=== PATIENT | female | born 1935 | race Caucasian/White ===

== ENCOUNTER 2017-04-21 09:06 | Inpatient (IN) | payer MEDICARE ==
--- NOTE | ~2017-04-21 | HP ---
History And Physical [id number] [facility] [place]. [address] NAME: ALBERT VALLADARES : 34 STATUS : ADM IN [facility]#: [id number] AGE: 81 ADM/REG DATE : 04/21/17 MR#: [id number] REPORT SERV DATE: 04/21/17 DICTATED BY: FAUSTO MINER DATE: 04/21/17 REPORT STATUS : Draft TRANSCRIBED BY: MODL DATE: 04/21/17 DATE OF ADMISSION: 04/21/2017 HISTORY OF PRESENT ILLNESS: The patient is an 81-year-old female who fell at home at 2:00 a.m. and fractured her left hip femoral neck. She is complaining of pain in her left hip. She denies any chest pain or shortness of breath. She is nauseous after she was given morphine for pain control in the emergency room. The patient is going to have surgery tomorrow per orthopedist, Dr. Escobar, who is already at bedside discussing surgery with the patient. I was asked to admit this patient for medical management. The patient denies any chest pain or shortness of breath. No fever. No rash. No headache. She is just complaining of pain in her hip. PAST MEDICAL HISTORY: Known for history of mantle cell lymphoma, on immunotherapy; history of recurrent pleural effusion in the past; history of pneumonia in the past; history of cardiomegaly with CHF chronic diastolic dysfunction; anemia of chronic disease; leukocytosis, chronic. Her echocardiogram on 11/07/2016 showed left ventricular systolic function being normal at 60% and it showed mild diastolic dysfunction. For her lymphoma, she is undergoing immunotherapy per Dr. Masterson. She denies any history of heart attacks. No strokes. No diabetes. She has history of mild hypertension. PAST SURGICAL HISTORY: Includes left side port insertion, hysterectomy, and hernia repair. SOCIAL HISTORY: No smoking currently, smoked 30 years ago. No excessive alcohol. No recreational drug use. She has a daughter and granddaughter. FAMILY HISTORY: Mother had ovarian cancer, at 58. Father with heart disease and in his 60s. ALLERGIES: SHE HAS MULTIPLE ALLERGIES WHICH INCLUDE NEOMYCIN, BACITRACIN, POLYMYXIN B, ATORVASTATIN, SULFA, CODEINE, PENICILLIN, NEOSPORIN, BEE STINGS, AND LATEX. HOME MEDICATIONS: Include Fosamax 70 mg p.o. every seven days, Norvasc 5 mg a day, Artificial Tears daily, aspirin 325 mg a day, Pulmicort two puffs inhaled daily p.r.n., Flovent one puff inhaled daily, ibrutinib 140 mg a day, multivitamins daily, omeprazole 20 daily, and Ambien 5 mg at bedtime. REVIEW OF SYSTEMS: 14-point review of systems done and negative except what is stated in the history of present illness. PHYSICAL EXAMINATION: GENERAL: Well-nourished, well-developed female, not in acute distress, resting quietly. VITAL SIGNS: Blood pressure 156/58, temperature 98.5, heart rate 91, respiratory rate 17, and oxygen saturation 94% on room air. HEENT: Head atraumatic, normocephalic. Conjunctivae clear. Pupils are equal and reactive to light and accommodation. Extraocular muscles are intact. History And Physical [address] [address] NAME: ALBERT VALLADARES : 34 STATUS : ADM IN [facility]#: [id number] AGE: 81 ADM/REG DATE : 04/21/17 MR#: [id number] REPORT SERV DATE: 04/21/17 DICTATED BY: FAUSTO MINER DATE: 04/21/17 REPORT STATUS : Draft TRANSCRIBED BY: TALA DATE: 04/21/17 NECK: Supple. Trachea is midline. No supraclavicular or cervical lymphadenopathy. LUNGS: Diminished breath sounds bilaterally. Decreased respiratory effort. CARDIOVASCULAR SYSTEM: Regular rate and rhythm. Point of maximal impulse not displaced. ABDOMEN: Soft, nontender, nondistended. Positive normoactive bowel sounds. EXTREMITIES: No clubbing, cyanosis, or edema. SKIN: Normal color and turgor. PSYCHIATRIC: Normal mood and affect. NEUROLOGIC: Awake, alert, and oriented in time, place, and person. She is hard of hearing. Muscle strength is 5/5 bilaterally in the upper and lower extremities. SKIN: Normal color and turgor. LABORATORY RESULTS: Sodium 134, potassium 4.2, chloride 102, carbon dioxide 23, BUN 14, creatinine 0.86. Blood sugar 83. ALT 22, AST 40. White count 12,000, hemoglobin 12, hematocrit 34.5, and platelet count is 155. PT 14, INR 1.1. Chest x-ray showed no acute cardiopulmonary process, stable left Port-A-Cath with tip over the SVC, stable dense calcified plaque at the aortic arch. X-ray of the left hip showed left femoral neck fracture. EKG: EKG showed normal sinus rhythm with a rate of 79. ASSESSMENT AND PLAN: This is very pleasant 81-year-old female with a past medical history of mantle cell lymphoma, history of hypertension, history of congestive heart failure, chronic diastolic dysfunction, history of recurrent pneumonias in the past, presented with left hip fracture secondary to fall. 1. Nausea secondary to pain medicine secondary to left hip fracture. 2. Pain secondary to left hip fracture. 3. Hypertension secondary to pain. We will admit the patient to telemetry bed. Dr. Escobar, orthopedist, already saw the patient and he wrote his orders. We will take care of her medical problems. Right now, she looks stable. We will give her reasonable control with morphine. If she develops nausea, we will give her intravenous Zofran. Blood pressure is mildly elevated because of pain. We will give her intravenous hydralazine as needed for systolic blood pressure of 160 and above. We will monitor this patient. We will give her also breathing treatment and continue her Pulmicort and Flovent. MG/MODL Fausto Miner M.D. / [id number] History And Physical [address] [address] NAME: ALBERT VALLADARES : 34 STATUS : ADM IN PAT#: [id number] AGE: 81 ADM/REG DATE : 04/21/17 MR#: [id number] REPORT SERV DATE: 04/21/17 DICTATED BY: FAUSTO MINER DATE: 04/21/17 REPORT STATUS : Draft TRANSCRIBED BY: MODL DATE: 04/21/17 CC: DO Shaun Brooks M.D. Neil Spitalny, M.D.
--- NOTE | ~2017-04-21 | DS ---
Discharge Summary [facility] [address] [facility] [place]. [address] NAME: ALBERT VALLADARES : 33 STATUS : DIS IN PAT#: [id number] AGE: 81 ADM/REG DATE : 04/21/17 MR#: [id number] REPORT SERV DATE: 04/25/17 DICTATED BY: RICKEY FLORES DATE: 04/24/17 REPORT STATUS : Draft TRANSCRIBED BY: TALA DATE: 04/24/17 ADMISSION DATE: 04/21/2017 DISCHARGE DATE: 04/24/2017 CONSULTATION: Orthopedic Surgeon, Dr. Harsh Escobar. INVASIVE PROCEDURE: Cemented bipolar prosthesis to the left hip. DISCHARGE DIAGNOSES: 1. Displaced subcapital fracture, left hip. 2. Hypertension. 3. Acute kidney injury, resolved. 4. Hyponatremia, resolved. 5. Postop anemia. 6. History of mantle cell lymphoma. 7. Right upper extremity hematoma. DISCHARGE CONDITION: Stable. IMAGIN. Hip x-ray, two views of the pelvis, impression: Garden IV left femoral neck fracture. 2. X-ray of the left hip postop, impression: Status post cemented left hip bipolar prosthetic placement. HISTORY OF PRESENT ILLNESS: For detailed HPI, please make reference to Dr. Kam's dictation on 04/21/2017. In brief, this is an 81-year-old female, who presented to the emergency room with complaints of severe left hip pain after a ground-level fall at home. X ray of the pelvis in the ER showed left hip fracture. The patient was admitted to the Hospitalist Service for further management. HOSPITAL COURSE: 1. Left hip fracture. Orthopedic surgeon was consulted, who recommended total hip replacement. The patient underwent placement of cemented bipolar prosthesis of the left hip successfully without any significant complications. Postop, the patient did not have any significant complications. Given history of prior GI bleeds and history of malignancy, it was noted per Orthopedics that patient should go home on aspirin 325 mg p.o. b.i.d. for DVT prophylaxis. Physical Therapy evaluated the patient and recommended acute rehab. lineworker was able to secure an acute rehab placement. The patient was discharged to rehab in stable condition. 2. Anemia secondary to acute on chronic anemia. The patient has a known baseline history of anemia. Follows up with Hematology. Last known baseline was 9.9 in November 2014. At the time of presentation, patient's hemoglobin was 12. During the course of this admission, the patient's hemoglobin trended down to 7.3, likely related to acute blood loss. Postop, the patient received 1 unit of blood transfusion. The patient's hemoglobin improved to 8.3 at the time of discharge and remained stable. The patient was advised to continue follow up with Hematology as an outpatient. Discharge Summary [address] [address] NAME: ALBERT VALLADARES : 34 STATUS : DIS IN PAT#: [id number] AGE: 81 ADM/REG DATE : 04/21/17 MR#: [id number] REPORT SERV DATE: 04/25/17 DICTATED BY: RICKEY FLORES DATE: 04/24/17 REPORT STATUS : Draft TRANSCRIBED BY: TALA DATE: 04/24/17 3. Acute kidney injury. The patient's creatinine trended up to 1.5 during the course of this admission, likely related to hypotension. The patient received IV fluid bolus. The patient's creatinine trended down from 1.5 to 1.1 prior to discharge. The patient was advised to continue follow up with primary care physician. DISCHARGE MEDICATIONS: 1. Aspirin 325 mg p.o. b.i.d., per Orthopedics recommendations (for DVT prophylaxis postop). 2. Vitamin one p.o. b.i.d. 3. Protonix 40 mg p.o. daily. 4. Prilosec 20 mg p.o. daily. 5. Norvasc 5 mg p.o. daily. 6. Fosamax 70 mg p.o. monthly. 7. Ibrutinib 140 mg p.o. at bedtime. DISCHARGE CONDITION: Stable. DISCHARGE DISPOSITION: Acute rehab. DISCHARGE ACTIVITIES: As tolerated. DISCHARGE FOLLOWUP: 1. Follow up with Oncology/Hematology for followup on anemia and history of mantle cell lymphoma. 2. Follow up with orthopedic surgeon as an outpatient. 3. Follow up with primary care physician within one to two weeks of discharge. Greater than 30 minutes was used to prepare this patient's discharge, reconcile medication, advise the patient on discharge plans and followup. DICTATED BY: MD ELPIDIO StaufferO/TALA Rickey Flores MD / [id number] CC: MD Brad Stauffer DO
--- NOTE | ~2017-04-21 | OP ---
Record Of Operation [facility] [address] [place]. [address] NAME: ALBERT VALLADARES : 33 STATUS : ADM IN PAT#: [id number] AGE: 81 ADM/REG DATE : 04/21/17 MR#: [id number] REPORT SERV DATE: 04/22/17 DICTATED BY: ALEK BURRIS DATE: 04/22/17 REPORT STATUS : Draft TRANSCRIBED BY: MODJordyn DATE: 04/22/17 DATE OF PROCEDURE: 04/22/2017 PREOPERATIVE DIAGNOSIS: Displaced subcapital fracture, left hip. POSTOPERATIVE DIAGNOSIS: Displaced subcapital fracture, left hip. OPERATIVE PROCEDURE: Cemented bipolar prosthesis, left hip. DESCRIPTION OF PROCEDURE: The patient was brought to the operating room, and after successful induction of general endotracheal anesthesia, administration of 2 g Ancef preoperatively. The patient was placed in a lateral position, supported by the hip sharma. The hip, thigh, groin, leg, and buttock were scrubbed, prepped, and draped in usual sterile fashion. A short posterolateral incision beginning at the superior aspect of the greater trochanter was carried down through the skin, subcutaneous tissue down the fascia marsha, which was cleaned off with a periosteal elevator and divided in the direction of skin incision. A Charnley retractor was placed deep in the wound after the gluteus was retracted. The piriformis tendon was cleaned off and tagged with a #1 Vicryl suture. The rotators and capsule were divided by electrocautery down to the fractured femoral neck. The rotators once were then swept posterior off the capsule and a T-incision made in the capsule for later repair as well. The femoral neck was shortened several millimeters with an oscillating saw and the fractured femoral head was removed using a power corkscrew and a ligamentum teres cutter. It was sized to 44 mm. Extraneous soft tissue and bone fragments were removed from the acetabulum and 43 and 44 trials were utilized, 44 giving excellent suction fit. At this point, femoral canal was prepared by initial reaming and then increased reaming to 13-14 mm, lateralizing with both the reamers and broaches 0, 1, 2, and partially use of a size 3 broach was carried out in 25 to 30 degrees of anteversion. The canal was copiously irrigated with a canal brush and irrigating solution. A cement restrictor was placed 2 cm to 3 cm distal tip of the prosthesis. Two packs of cement were vacuum mixed and inserted with a cement gun and pressurized with an osteotome. The size 2 [place] Franny straight stem was placed in 25 degrees of anteversion. The extraneous cement was removed. Trial reduction was done with a -4 and with a +0 neck. +0 was selected. After the trunnion was meticulously dried, the +0 L fit femoral head was impacted and the 44 mm bipolar head snapped into place. Components were reduced. Excellent and stable full range of motion was obtained. The wound was further irrigated with pulse lavage. The capsules closed with multiple figure of-eight #1 Vicryl sutures. The rotators were loosely reattached to the greater trochanter Record Of Operation [facility] [address] [facility] [place]. [address] NAME: ALBERT VALLADARES : 34 STATUS : ADM IN PAT#: [id number] AGE: 81 ADM/REG DATE : 04/21/17 MR#: [id number] REPORT SERV DATE: 04/22/17 DICTATED BY: ALEK BURRIS DATE: 04/22/17 REPORT STATUS : Draft TRANSCRIBED BY: MODL DATE: 04/22/17 also with #1 Vicryl sutures. Fascia marsha was closed with both running interrupted #1 Vicryl, subcutaneous tissue with 2-0, and skin with skin bharti. The patient was stable intraoperatively. ESTIMATED BLOOD LOSS: Approximately 150 mL and received 500 mL of crystalloid. NS/MODL Alek Burris M.D. / [id number] CC: Senait Davis DO
[~2017-04-21 09:06] MED LIST: ACET500CAP PO; ALEVE220 MG PO; AMB5 PO; AT25 PO; DELTADOSE; FLONASE NAS; FLORASTOR250 MG PO; HYDROCODONE 5/325 PO; HYOMAX-FT0.125 MG PO; KLOR-CON M2020 MEQ PO; L20 PO; LEVAQUIN750 MG PO; LIQUID TEARS OPH; MEGACEUDL PO; NORV5 PO; NYS500UDL PO; OMNICEF300 PO; PROAIR HFA INH; PROCRIT; PROVHFA INH; PT DENIES ANY MEDS; PULMICORT180 MCG INH; REMERON30 MG PO; ROBITUSS23 OR; TESS PO; ZITH250 PO
[2017-04-21] MEDS ORDERED: AMB5 PO (11:05)
[2017-04-21] MEDS ORDERED: NORV5 PO (11:07)
[2017-04-21] MEDS ORDERED: FLOVENT DISK100 MCG INH (11:07)
[2017-04-21] MEDS ORDERED: PULMICORT180 MCG INH (11:08)
[2017-04-21] MEDS ORDERED: FOSAMAX70 MG PO (11:09)
[2017-04-21] MEDS ORDERED: MULTIVIT/MIN PO (11:10)
[2017-04-21] MEDS ORDERED: REFRESH OPH (11:11)
[2017-04-21] MEDS ORDERED: PRILOSEC OTC20 MG PO (11:11)
[2017-04-21] MEDS ORDERED: ASA5GR PO (11:11)
[2017-04-21] MEDS ORDERED: IMBRU140C PO (11:12)
[2017-04-21 11:29] LABS: BASOPHILS 0.2 %; BASOPHILS ABSOLUTE 0.03 10/3/uL (0.0-0.16); EOSINOPHILS 0.1 %; EOSINOPHILS ABSOLUTE 0.01 10/3/uL (0.0-0.53); IMMATURE GRANULOCYTES 0.4 %; IMMATURE GRANULOCYTES ABSOLUTE 0.05 10/3/uL (0.0-0.11); LYMPHOCYTES 7.8 %; LYMPHOCYTES ABSOLUTE 0.94 10/3/uL (0.67-4.30); MEAN CORPUS HGB CONC 34.8 g/dL (32.0-36.0); MEAN CORPUSCULAR HEMOGLOB 37.4 pg (26.0-34.0); MEAN PLATELET VOLUME 10.7 fL (9.2-13.0); MONOCYTES 9.2 %; MONOCYTES ABSOLUTE 1.11 10/3/uL (0.21-1.20); NEUTROPHILS 82.3 %; PLATELET COUNT 155 10/3/uL (150-400); RBC DISTRIBUTION WIDTH 13.8 % (12.0-16.0); RED CELL COUNT 3.21 10/6/uL (4.0-5.6)
[2017-04-21 11:32] LABS: ER CBC TAT 0 Hrs 11 Mins; HEMATOCRIT 34.5 % (36.0-48.0); MANUAL DIFF NO %; MEAN CORPUSCULAR VOLUME 107.5 fL (80-100)
[2017-04-21 11:41] LABS: BUN (BLOOD UREA NITROGEN) 14 MG/DL (6-23); CALCIUM, SERUM 8.4 MG/DL (8.5-10.4); CHLORIDE, SERUM 102 MMOL/L (96-112); CO2 (CARBON DIOXIDE) 23 MMOL/L (24-34); CREATININE 0.86 MG/DL (0.55-1.02); GFR AFRICAN AMERICAN 73 ML/MIN (>=60); GFR NON AFRICAN AMERICAN 63 ML/MIN (>=60); GLUCOSE, SERUM 83 MG/DL (60-99); POTASSIUM, SERUM 4.2 MMOL/L (3.5-5.3); SGOT(AST) 40 U/L (5-40); SGPT(ALT) 22 U/L (5-65); SODIUM, SERUM 134 MMOL/L (135-148); TOTAL PROTEIN 6.7 G/DL (6.0-8.5)
[2017-04-21 11:42] LABS: A/G RATIO 1.3 (0.7-1.9); ALBUMIN 3.8 G/DL (3.5-5.0); ALKALINE PHOSPHATASE 55 U/L (45-117); GLOBULIN 2.9 G/DL (2.5-4.1); TOTAL BILIRUBIN 1.4 MG/DL (0-1.2)
[2017-04-21 11:43] LABS: INTERNATIONAL NORMAL RATI 1.1 UNITS (-); PARTIAL THROMBO TIME 25.3 SEC (22.5-37.2)
[2017-04-22 06:24] LABS: BASOPHILS 0.2 %; BASOPHILS ABSOLUTE 0.02 10/3/uL (0.0-0.16); EOSINOPHILS 0 %; HEMOGLOBIN 11.3 g/dL (12.0-16.0); IMMATURE GRANULOCYTES 0.4 %; IMMATURE GRANULOCYTES ABSOLUTE 0.04 10/3/uL (0.0-0.11); LYMPHOCYTES 14.6 %; MEAN CORPUS HGB CONC 34.2 g/dL (32.0-36.0); MEAN CORPUSCULAR HEMOGLOB 37.8 pg (26.0-34.0); MEAN CORPUSCULAR VOLUME 110.4 fL (80-100); MEAN PLATELET VOLUME 10.7 fL (9.2-13.0); MONOCYTES 13.5 %; MONOCYTES ABSOLUTE 1.29 10/3/uL (0.21-1.20); NEUTROPHILS 71.3 %; NEUTROPHILS ABSOLUTE 6.84 10/3/uL (2.02-8.40); PLATELET COUNT 147 10/3/uL (150-400); RBC DISTRIBUTION WIDTH 14.1 % (12.0-16.0); RED CELL COUNT 2.99 10/6/uL (4.0-5.6); WHITE BLOOD CELLS 9.6 10/3/uL (4.5-10.5)
[2017-04-22 06:26] LABS: MANUAL DIFF NO %
[2017-04-22 06:37] LABS: BUN (BLOOD UREA NITROGEN) 16 MG/DL (6-23); CALCIUM, SERUM 8.4 MG/DL (8.5-10.4); CHLORIDE, SERUM 100 MMOL/L (96-112); CO2 (CARBON DIOXIDE) 23 MMOL/L (24-34); CREATININE 0.74 MG/DL (0.55-1.02); GFR AFRICAN AMERICAN 87 ML/MIN (>=60); GFR NON AFRICAN AMERICAN 75 ML/MIN (>=60); GLUCOSE, SERUM 88 MG/DL (60-99); POTASSIUM, SERUM 4.6 MMOL/L (3.5-5.3); SODIUM, SERUM 133 MMOL/L (135-148)
[2017-04-22 07:42] LABS: MACROCYTES 4+ (>50/OIF) (0-5/OIF); PLATELET ESTIMATE SLT DEC (ADEQUATE)
[2017-04-22 07:51] LABS: ASCORBIC ACID (UR NOT ORDER) NEG (NEG); BILIRUBIN, URINE NEGATIVE (NEG); KETONE, URINE 20 MG/DL (NEG); LEUKOCYTE ESTERASE(NOT OR NEG (NEG); WBC (NOT ORDERED) (RFLEX) 1 (0-5)
[2017-04-23 08:01] LABS: CALCIUM, SERUM 7.9 MG/DL (8.5-10.4); CHLORIDE, SERUM 98 MMOL/L (96-112); CO2 (CARBON DIOXIDE) 25 MMOL/L (24-34); SODIUM, SERUM 133 MMOL/L (135-148)
[2017-04-23 08:02] LABS: BUN (BLOOD UREA NITROGEN) 27 MG/DL (6-23); GFR AFRICAN AMERICAN 37 ML/MIN (>=60); GFR NON AFRICAN AMERICAN 32 ML/MIN (>=60); GLUCOSE, SERUM 126 MG/DL (60-99)
[2017-04-23 10:21] LABS: ALBUMIN 3.1 G/DL (3.5-5.0); DIRECT BILIRUBIN 0.2 MG/DL (0.0-0.4); SGPT(ALT) 17 U/L (5-65); TOTAL PROTEIN 5.6 G/DL (6.0-8.5)
[2017-04-23 10:23] LABS: ALKALINE PHOSPHATASE 41 U/L (45-117); INDIRECT BILIRUBIN(NOT ORDER) 0.5 MG/DL (0.1-0.9); SGOT(AST) 36 U/L (5-40); TOTAL BILIRUBIN 0.7 MG/DL (0-1.2)
[2017-04-23 11:07] LABS: HEMATOCRIT 20.8 % (36.0-48.0); HEMOGLOBIN 7.3 g/dL (12.0-16.0)
[2017-04-23 11:13] LABS: INTERNATIONAL NORMAL RATI 1.2 UNITS (-); PROTIME (NOT ORD) 14.7 SEC (12.0-14.5)
[2017-04-24 06:39] LABS: BASOPHILS 0.3 %; BASOPHILS ABSOLUTE 0.03 10/3/uL (0.0-0.16); EOSINOPHILS 0.2 %; EOSINOPHILS ABSOLUTE 0.02 10/3/uL (0.0-0.53); HEMOGLOBIN 8.3 g/dL (12.0-16.0); IMMATURE GRANULOCYTES 0.4 %; IMMATURE GRANULOCYTES ABSOLUTE 0.04 10/3/uL (0.0-0.11); LYMPHOCYTES 8.6 %; LYMPHOCYTES ABSOLUTE 0.92 10/3/uL (0.67-4.30); MEAN CORPUSCULAR HEMOGLOB 35.8 pg (26.0-34.0); MEAN PLATELET VOLUME 10.9 fL (9.2-13.0); MONOCYTES 14.6 %; MONOCYTES ABSOLUTE 1.57 10/3/uL (0.21-1.20); NEUTROPHILS 75.9 %; NEUTROPHILS ABSOLUTE 8.17 10/3/uL (2.02-8.40); PLATELET COUNT 156 10/3/uL (150-400); WHITE BLOOD CELLS 10.8 10/3/uL (4.5-10.5)
[2017-04-24 06:40] LABS: HEMATOCRIT 23.7 % (36.0-48.0); MANUAL DIFF NO %; MEAN CORPUSCULAR VOLUME 102.2 fL (80-100); RED CELL COUNT 2.32 10/6/uL (4.0-5.6)
[2017-04-24 06:50] LABS: BUN (BLOOD UREA NITROGEN) 25 MG/DL (6-23); CALCIUM, SERUM 7.8 MG/DL (8.5-10.4); CHLORIDE, SERUM 99 MMOL/L (96-112); CO2 (CARBON DIOXIDE) 24 MMOL/L (24-34); CREATININE 1.19 MG/DL (0.55-1.02); GFR AFRICAN AMERICAN 49 ML/MIN (>=60); GFR NON AFRICAN AMERICAN 42 ML/MIN (>=60); GLUCOSE, SERUM 102 MG/DL (60-99); POTASSIUM, SERUM 5.3 MMOL/L (3.5-5.3); SODIUM, SERUM 130 MMOL/L (135-148)
[2017-04-24 07:02] LABS: MACROCYTES 1+ (5-10/OIF) (0-5/OIF); PLATELET ESTIMATE ADQ (ADEQUATE)
[2017-04-24 14:45] LABS: FERRITIN 678 NG/ML (8-252); FREE T4 1.86 NG/DL (0.76-1.46); IRON BINDING CAPACITY 198 MCG/DL (225-410); IRON, SERUM 30 MCG/DL (35-150)
[2017-04-24 14:46] LABS: FOLATE 10.4 NG/ML (>5.2)
== END 2017-04-24 17:59 | DRG 470 ==
LOC: ER 09:06 → 1SO 13:25
PROVIDERS: Emergency Medicine; Hospitalist; Orthopaedic Surgery
PROC: 0SRS019 Replacement of Left Hip Joint, Femoral Surface with Metal Synthetic Substitute, Cemented, Open Approach (ICD-10-PCS; principal; 2017-04-22 07:15)
PROC: 30233N1 Transfusion of Nonautologous Red Blood Cells into Peripheral Vein, Percutaneous Approach (ICD-10-PCS; 2017-04-23)
DX: S72.002A Fracture of unspecified part of neck of left femur, initial encounter for closed fracture (principal); N17.9 Acute kidney failure, unspecified; E87.1 Hypo-osmolality and hyponatremia; I50.32 Chronic diastolic (congestive) heart failure; I11.0 Hypertensive heart disease with heart failure; D53.9 Nutritional anemia, unspecified; H40.9 Unspecified glaucoma; D63.8 Anemia in other chronic diseases classified elsewhere; E78.00 Pure hypercholesterolemia, unspecified; K21.9 Gastro-esophageal reflux disease without esophagitis; W18.30XA Fall on same level, unspecified, initial encounter; Z79.82 Long term (current) use of aspirin; Z79.899 Other long term (current) drug therapy; Z87.891 Personal history of nicotine dependence; Z85.72 Personal history of non-Hodgkin lymphomas; Z87.01 Personal history of pneumonia (recurrent); Z88.0 Allergy status to penicillin; Z88.2 Allergy status to sulfonamides; Z88.5 Allergy status to narcotic agent; Z91.040 Latex allergy status; Z88.1 Allergy status to other antibiotic agents; Z91.030 Bee allergy status
CPT/HCPCS: 36415; 71010; 72170; 73502-LT; 80048; 80053; 80076; 81001; 82607; 82728; 82746; 83036; 83540; 83550; 83735; 84439; 84443; 85014; 85018; 85025; 85610; 85730; 86850; 86900; 86901; 86920; 88305; 88311; 93005; 94640; 96374; 96375; 97162-GP; 97166-GO; 99285; A9270-GY; C1776; J0360; J0690; J2270; J2405; J3010; P9016